=== PATIENT | female | born 1965 | race Caucasian/White ===

== ENCOUNTER 2025-09-01 10:03 | Outpatient (CLI) | payer OTHER, SELFPAY | END 2025-09-01 10:04 | disposition home or self-care (01) | LOC: MOBLMAM 10:19 | PROVIDERS: PCP Family Medicine; Visit Provider Family Medicine | DX: Z12.31 Encounter for screening mammogram for malignant neoplasm of breast (principal) | CPT/HCPCS: 77063; 77067 ==